=== PATIENT | female | born 2000 | race Caucasian/White ===

== ENCOUNTER 2021-01-05 19:13 | Inpatient (IN) ==
--- NOTE | 2021-01-05 20:12 | Emergency Department Note ---
History of Present Illness General Chief complaint: Mental Health Evaluation Stated complaint: SUICIDAL THOUGHTS Time Seen by Provider: 01/05/21 19:56 Source: patient History of Present Illness Provider complaint: Abi and suicidal ideation Onset (ago): day(s) Location: head Pain Consistency: + intermittent Quality: + other (Impulsive behavior, excessive spending, cannot sleep) Relieved By: + none Associated symptoms: no chest pain, no cough, no fever/chills, no headaches, no nausea/vomiting or no shortness of breath This is a 20-year-old female with a history of depression anxiety presenting for mental health evaluation. She states that she has felt "manic" for the past several days. She has also had suicidal ideation but no specific plan and no intent. She states that she has been acting impulsively. She slept with her boyfriend's best friend, spends a lot of money and does things that are out of character for her. She states that she is only been able to get 4 to 5 hours of sleep. She denies any drug or alcohol use. She is on Cymbalta for anxiety and depression but does not have a counselor or psychiatrist. She does not have a history of bipolar disorder but states that her relatives does and she thinks her mother does but she will not get checked. Patient denies any physical complaints and denies fever, cough or cold symptoms, chest pain, shortness of breath, abdominal pain, vomiting, diarrhea or urinary symptoms. She does state that she cut herself in the left thigh and forearm 2 days ago. She used to cut herself in the past but has not done so in a long time. She denied any suicidal intent with this cutting. Home Medications Medication Instructions Recorded Confirmed Type etonogestrel 68 mg subdermal 68 mg SUBDERMAL DIRECTED 12/16/18 01/09/20 History implant (Nexplanon) Saccharomyces boulardii 250 mg 250 mg PO BID #20 cap 09/01/20 Rx capsule (Florastor) amoxicillin 875 mg-potassium 1 tab PO BID #20 tab 09/01/20 Rx clavulanate 125 mg tablet (Augmentin) Allergies Allergy/AdvReac Type Severity Reaction Status Date / Time No Known Allergies Allergy Verified 01/09/20 03:57 Past Med/Surg History Medical History Anxiety Depression Family History Other No significant family history Social History Smoking Status: Never smoker marital status: Single Current Living Situation: Significant Other current occupational status: student Feels Safe at Home: Yes Review of Systems See HPI for pertinent positives & negatives. and A total of 10 systems reviewed and were otherwise negative Physical Exam Vital Signs Vital Signs - 24 hr 01/05/21 19:25 01/05/21 19:44 Temperature 36.6 C 37.1 C Temperature Source Temporal Artery Scan Oral Pulse Rate 112 H Pulse Rate [Right Finger] 108 H Pulse Rhythm [Right Finger] Regular Pulse Strength [Right Finger] Normal Respiratory Rate 18 18 Respiratory Effort / Characteristics Non-Labored Spontaneous Non-Labored Spontaneous Respiratory Depth Normal Normal Respiratory Pattern Regular Blood Pressure 145/94 H Blood Pressure [Right Arm] 154/82 H Blood Pressure Mean 111 Blood Pressure Mean [Right Arm] 106 Blood Pressure Position [Right Arm] Sitting Pulse Oximetry 99 98 Oxygen Delivery Method Room Air Room Air Sepsis Recent Fever Within 48 Hours No Sepsis New/Unexplained Change in Mental Status N/A Sepsis Action Taken by Nursing No Action Required Constitutional: Vital signs reviewed. Eyes: Pupils are equal round reactive to light. Conjunctiva are noninjected. ENT: Pharynx is clear without erythema or exudate. Mucous membranes are moist. Neck supple without meningeal signs. Respiratory: Clear to auscultation bilaterally. Breath sounds are equal bilaterally. Cardiovascular: Regular rate and rhythm. No rubs or gallops. GI: Soft, nondistended and nontender. Bowel sounds are present. Musculoskeletal: No peripheral edema. No lower extremity tenderness. Integumentary: No cyanosis. or jaundice. 3 very superficial transverse lacerations to the volar aspect of the left upper forearm without cellulitis or bleeding. Neurological: The patient is awake and alert. No focal deficits. Psychiatric: Normal affect. Not anxious appearing. Medical Decision Making Differential Diagnosis Mood disorder, thought disorder, acute abi, bipolar disorder, alcohol or drug abuse Medical Records Attestation: I reviewed the patient's medical records. I did perform a limited focused review of portions of the patient's old chart on the electronic medical record. The patient has had no recent pertinent visits to this hospital. Home Medications Current Medication List: was personally reviewed by me Laboratory Data Attestation: I reviewed the patient's lab results. Result diagrams: 01/05/21 20:20 01/05/21 20:20 Lab Results 01/05/21 01/05/21 01/05/21 Range/Units 20:15 20:15 20:15 WBC (4.8-10.8) K/uL RBC (4.2-5.4) M/uL Hgb (12.0-16.0) g/dL Hct (37-47) % MCV (80-100) fL MCH (25-34) pg MCHC (32-36) g/dL RDW Std Deviation (36.4-46.3) fL RDW Coeff of Claude (11.5-14.5) % Plt Count (130-400) K/uL MPV (7.4-10.4) fL Immature Gran % (Auto) % Neut % (Auto) % Lymph % (Auto) % [place] % (Auto) % Eos % (Auto) % Baso % (Auto) % Neut # (Auto) (1.4-6.5) K/uL Lymph # (Auto) (1.2-3.4) K/uL [place] # (Auto) (0.11-0.59) K/uL Eos # (Auto) (0-0.5) K/uL Baso # (Auto) (0-0.2) K/uL Immature Gran # (Auto) (0.00-0.02) K/uL Sodium (136-145) mmol/L Potassium (3.5-5.1) mmol/L Chloride (98-107) mmol/L Carbon Dioxide (21-32) mmol/L Anion Gap (3-11) BUN (7-18) mg/dl Creatinine (0.6-1.2) mg/dl Est Cr Clr Drug Dosing ml/min Est GFR ( Amer) ml/min Est GFR (Non-Af Amer) ml/min BUN/Creatinine Ratio (10-20) Glucose (70-99) mg/dl Calcium (8.5-10.1) mg/dl Total Bilirubin (0.2-1) mg/dl AST (15-37) U/L ALT (12-78) U/L Alkaline Phosphatase (45-117) U/L Total Protein (6.4-8.2) gm/dl Albumin (3.4-5.0) gm/dl Globulin (2.5-4.0) gm/dl Albumin/Globulin Ratio (0.9-2) TSH (0.300-4.500) uIu/ml Urine Color Yellow Urine Appearance Clear (Clear) Urine pH 5.5 (4.5-7.5) Ur Specific Logan 1.024 (1.000-1.030) Urine Protein Trace H (Negative) Urine Glucose (UA) Negative (Negative) Urine Ketones Trace H (Negative) Urine Blood 3+ H (Negative) Urine Nitrite Negative (Negative) Urine Bilirubin Negative (Negative) Urine Urobilinogen Negative (Negative) Ur Leukocyte Esterase Negative (Negative) Urine WBC (Auto) 1-5 (0-5) /hpf Urine RBC (Auto) 5-10 H (0-4) /hpf U Hyaline Cast (Auto) 1-5 (0-5) /lpf U Epithel Cells (Auto) 20-30 H (0-5) /lpf Urine Bacteria (Auto) Negative (Negative) Urine Crystals Calcium Oxalate A (None Prsent) Calcium Oxalate Crystal Present A (None Prsent) POC Ur Test NEG (NEG) Salicylates (2.8-20) mg/dl Urine Opiates Screen Neg (Neg) Ur Methadone, Qual Neg (Neg) Acetaminophen (10-30) ug/ml Urine Barbiturates Neg (Neg) Ur Phencyclidine (PCP) Neg (Neg) U Amphetamin/Meth Scrn Neg (Neg) MDMA (Ecstasy) Screen Neg (Neg) U Benzodiazepines Scrn Neg (Neg) Ur Cocaine Metabolite Neg (Neg) U Marijuana (THC) Screen Neg (Neg) Ethyl Alcohol mg/dL (0-3) mg/dl COVID-19 Eval Order 01/05/21 01/05/21 01/05/21 Range/Units 20:20 20:20 20:20 WBC 11.81 H (4.8-10.8) K/uL RBC 4.53 (4.2-5.4) M/uL Hgb 13.5 (12.0-16.0) g/dL Hct 40.9 (37-47) % MCV 90.3 (80-100) fL MCH 29.8 (25-34) pg MCHC 33.0 (32-36) g/dL RDW Std Deviation 43.7 (36.4-46.3) fL RDW Coeff of Claude 13.2 (11.5-14.5) % Plt Count 517 H (130-400) K/uL MPV 8.8 (7.4-10.4) fL Immature Gran % (Auto) 0.3 % Neut % (Auto) 63.2 % Lymph % (Auto) 29.8 % [place] % (Auto) 5.8 % Eos % (Auto) 0.5 % Baso % (Auto) 0.4 % Neut # (Auto) 7.47 H (1.4-6.5) K/uL Lymph # (Auto) 3.52 H (1.2-3.4) K/uL [place] # (Auto) 0.68 H (0.11-0.59) K/uL Eos # (Auto) 0.06 (0-0.5) K/uL Baso # (Auto) 0.05 (0-0.2) K/uL Immature Gran # (Auto) 0.03 H (0.00-0.02) K/uL Sodium 140 (136-145) mmol/L Potassium 3.9 (3.5-5.1) mmol/L Chloride 105 (98-107) mmol/L Carbon Dioxide 29 (21-32) mmol/L Anion Gap 5.0 (3-11) BUN 11 (7-18) mg/dl Creatinine 0.81 (0.6-1.2) mg/dl Est Cr Clr Drug Dosing 140.9 ml/min Est GFR ( Amer) 119.5 ml/min Est GFR (Non-Af Amer) 103.1 ml/min BUN/Creatinine Ratio 13.8 (10-20) Glucose 95 (70-99) mg/dl Calcium 9.1 (8.5-10.1) mg/dl Total Bilirubin 0.2 (0.2-1) mg/dl AST 24 (15-37) U/L ALT 48 (12-78) U/L Alkaline Phosphatase 84 (45-117) U/L Total Protein 8.1 (6.4-8.2) gm/dl Albumin 3.8 (3.4-5.0) gm/dl Globulin 4.3 H (2.5-4.0) gm/dl Albumin/Globulin Ratio 0.9 (0.9-2) TSH 2.200 (0.300-4.500) uIu/ml Urine Color Urine Appearance (Clear) Urine pH (4.5-7.5) Ur Specific Logan (1.000-1.030) Urine Protein (Negative) Urine Glucose (UA) (Negative) Urine Ketones (Negative) Urine Blood (Negative) Urine Nitrite (Negative) Urine Bilirubin (Negative) Urine Urobilinogen (Negative) Ur Leukocyte Esterase (Negative) Urine WBC (Auto) (0-5) /hpf Urine RBC (Auto) (0-4) /hpf U Hyaline Cast (Auto) (0-5) /lpf U Epithel Cells (Auto) (0-5) /lpf Urine Bacteria (Auto) (Negative) Urine Crystals (None Prsent) Calcium Oxalate Crystal (None Prsent) POC Ur Test (NEG) Salicylates < 1.7 L (2.8-20) mg/dl Urine Opiates Screen (Neg) Ur Methadone, Qual (Neg) Acetaminophen < 2 L (10-30) ug/ml Urine Barbiturates (Neg) Ur Phencyclidine (PCP) (Neg) U Amphetamin/Meth Scrn (Neg) MDMA (Ecstasy) Screen (Neg) U Benzodiazepines Scrn (Neg) Ur Cocaine Metabolite (Neg) U Marijuana (THC) Screen (Neg) Ethyl Alcohol mg/dL (0-3) mg/dl COVID-19 Eval Order 01/05/21 01/05/21 Range/Units 20:20 Unknown WBC (4.8-10.8) K/uL RBC (4.2-5.4) M/uL Hgb (12.0-16.0) g/dL Hct (37-47) % MCV (80-100) fL MCH (25-34) pg MCHC (32-36) g/dL RDW Std Deviation (36.4-46.3) fL RDW Coeff of Claude (11.5-14.5) % Plt Count (130-400) K/uL MPV (7.4-10.4) fL Immature Gran % (Auto) % Neut % (Auto) % Lymph % (Auto) % [place] % (Auto) % Eos % (Auto) % Baso % (Auto) % Neut # (Auto) (1.4-6.5) K/uL Lymph # (Auto) (1.2-3.4) K/uL [place] # (Auto) (0.11-0.59) K/uL Eos # (Auto) (0-0.5) K/uL Baso # (Auto) (0-0.2) K/uL Immature Gran # (Auto) (0.00-0.02) K/uL Sodium (136-145) mmol/L Potassium (3.5-5.1) mmol/L Chloride (98-107) mmol/L Carbon Dioxide (21-32) mmol/L Anion Gap (3-11) BUN (7-18) mg/dl Creatinine (0.6-1.2) mg/dl Est Cr Clr Drug Dosing ml/min Est GFR ( Amer) ml/min Est GFR (Non-Af Amer) ml/min BUN/Creatinine Ratio (10-20) Glucose (70-99) mg/dl Calcium (8.5-10.1) mg/dl Total Bilirubin (0.2-1) mg/dl AST (15-37) U/L ALT (12-78) U/L Alkaline Phosphatase (45-117) U/L Total Protein (6.4-8.2) gm/dl Albumin (3.4-5.0) gm/dl Globulin (2.5-4.0) gm/dl Albumin/Globulin Ratio (0.9-2) TSH (0.300-4.500) uIu/ml Urine Color Urine Appearance (Clear) Urine pH (4.5-7.5) Ur Specific Logan (1.000-1.030) Urine Protein (Negative) Urine Glucose (UA) (Negative) Urine Ketones (Negative) Urine Blood (Negative) Urine Nitrite (Negative) Urine Bilirubin (Negative) Urine Urobilinogen (Negative) Ur Leukocyte Esterase (Negative) Urine WBC (Auto) (0-5) /hpf Urine RBC (Auto) (0-4) /hpf U Hyaline Cast (Auto) (0-5) /lpf U Epithel Cells (Auto) (0-5) /lpf Urine Bacteria (Auto) (Negative) Urine Crystals (None Prsent) Calcium Oxalate Crystal (None Prsent) POC Ur Test (NEG) Salicylates (2.8-20) mg/dl Urine Opiates Screen (Neg) Ur Methadone, Qual (Neg) Acetaminophen (10-30) ug/ml Urine Barbiturates (Neg) Ur Phencyclidine (PCP) (Neg) U Amphetamin/Meth Scrn (Neg) MDMA (Ecstasy) Screen (Neg) U Benzodiazepines Scrn (Neg) Ur Cocaine Metabolite (Neg) U Marijuana (THC) Screen (Neg) Ethyl Alcohol mg/dL < 3.0 (0-3) mg/dl COVID-19 Eval Order Covid19 [facility]Now [facility] MDM Narrative I did evaluate the patient as noted above. The patient is presenting with suicidal ideation without a plan or any intent. She also states that she feels like she is having abi. She denies any prior history. He does have some very superficial lacerations to the leg and left forearm. I did order a urine analysis. She has calcium oxalate crystals but no signs of a UTI. She is not . I did order and review the patient's blood work as noted in the [facility] medical record. CBC is mildly elevated 11.8. She has no infectious symptoms. Hemoglobin is within normal limits. Platelets are 517. Electrolytes and LFTs are unremarkable. TSH is within normal limits. Toxicology screen is negative. I did have the mental health child welfare caseworker evaluate the patient. She evaluated her and recommended inpatient treatment. The patient was referred to [facility] I did discuss the test results with the patient. She was admitted to [facility] Impression & Plan Depression with suicidal ideation, Self-harming behavior Discharge Plan Visit Data Chief Complaint: Mental Health Evaluation Stated Complaint: SUICIDAL THOUGHTS ED Provider: Alvaro Page Discharge Problem: Depression with suicidal ideation, Self-harming behavior Patient Disposition: Transfer Behavioral Health Fac Forms Stand Alone Forms: My [facility], Suicide Prevention Resources Prescriptions Prescriptions: No Action Nexplanon 68 mg Implant 68 mg SUBDERMAL DIRECTED RF: 0 amoxicillin-pot clavulanate [Augmentin] 875-125 mg tablet 1 tab PO BID Qty: 20 RF: 0 Saccharomyces boulardii [Florastor] 250 mg capsule 250 mg PO BID Qty: 20 RF: 0 Referrals Referrals: [facility] [Primary Care Provider] -
[2021-01-05 20:30] LABS: Basophils # (auto) 0.05 K/uL (0-0.2); Basophils % (auto) 0.4 %; Eosinophils # (auto) 0.06 K/uL (0-0.5); Eosinophils % (auto) 0.5 %; Hematocrit (blood only) 40.9 % (37-47); Hemoglobin 13.5 g/dL (12.0-16.0); Immature Granulocytes # (auto) 0.03 K/uL (0.00-0.02); Immature Granulocytes % (auto) 0.3 %; Lymphocytes # (auto) 3.52 K/uL (1.2-3.4); Lymphocytes % (auto) 29.8 %; Mean Corpuscular Hemoglobin 29.8 pg (25-34); Mean Corpuscular Volume 90.3 fL (80-100); Mean Platelet Volume 8.8 fL (7.4-10.4); Monocytes # (auto) 0.68 K/uL (0.11-0.59); Monocytes % (auto) 5.8 %; Neutrophils # (auto) 7.47 K/uL (1.4-6.5); Neutrophils % (auto) 63.2 %; Platelet Count 517 K/uL (130-400); RDW Coefficient of Variation 13.2 % (11.5-14.5); RDW Standard Deviation 43.7 fL (36.4-46.3); Red Blood Count 4.53 M/uL (4.2-5.4); White Blood Count 11.81 K/uL (4.8-10.8)
[2021-01-05 20:52] LABS: Appearance Urine Clear (Clear); Bacteria Urine Automated Negative (Negative); Bilirubin Urine Negative (Negative); Blood Urine 3+ (Negative); Color Urine Yellow; Epithelial Cell Urine Auto 20-30 /lpf (0-5); Glucose Urine UA Negative (Negative); Ketones Urine Trace (Negative); Leukocyte Esterase Urine Negative (Negative); Nitrite Urine Negative (Negative); Protein Urine Trace (Negative); Specific Gravity Urine 1.024 (1.000-1.030); Urobilinogen Urine Negative (Negative); pH Urine 5.5 (4.5-7.5)
[2021-01-05 20:57] LABS: Albumin Level 3.8 gm/dl (3.4-5.0); BUN Creatinine Ratio 13.8 (10-20); Calcium 9.1 mg/dl (8.5-10.1); Creatinine Clr Calc Pharmacy 140.9 ml/min; Est GFR (African American) 119.5 ml/min; Est GFR (Non-African American) 103.1 ml/min; Potassium 3.9 mmol/L (3.5-5.1)
[2021-01-05 21:04] LABS: Calcium Oxalate Crystals Urine Present (None Prsent)
[2021-01-05 21:12] LABS: Albumin Globulin Ratio 0.9 (0.9-2); Bilirubin,Total 0.2 mg/dl (0.2-1); Globulin 4.3 gm/dl (2.5-4.0); Thyroid Stimulating Hormone 2.2 uIu/ml (0.300-4.500); Total Protein 8.1 gm/dl (6.4-8.2)
[2021-01-05 21:14] LABS: Acetaminophen < 2 ug/ml (10-30); Salicylate < 1.7 mg/dl (2.8-20)
[2021-01-05 21:21] LABS: Amphetamines+Metham, Urine Neg (Neg); Barbiturates, Urine Neg (Neg); Benzodiazepine, Urine Neg (Neg); Cocaine, Urine Neg (Neg); MDMA (Ecstacy), Urine Neg (Neg); Methadone, Urine Neg (Neg); Opiate, Urine Neg (Neg); Phencyclidine, Urine Neg (Neg)
[2021-01-06] MEDS ORDERED: LORazepam 1 MG TAB SL STA (01:10)
[2021-01-06 01:55] VITALS: O2SAT 96
[2021-01-06] MEDS ORDERED: MAGNESIUM HYDROXIDE SUSP 30 ML UDC PO PRN (02:30)
[2021-01-06] MEDS ORDERED: ALUMINUM/MAGNESIUM SUSP 30 ML UDC PO PRN (02:30)
[2021-01-06] MEDS ORDERED: SODIUM CHLORIDE 0.65% NA SOLN 45 ML (OCEAN) PRN (02:30)
[2021-01-06] MEDS ORDERED: BISMUTH SUBSALICYLATE LIQD 236 ML PO PRN (02:30)
[2021-01-06] MEDS ORDERED: hydrOXYzine HCl 25 MG TAB PO PRN ×2 (02:30)
[2021-01-06] MEDS ORDERED: QUEtiapine FUMARATE 25 MG TABLET PO ONE (02:32)
[2021-01-06] MEDS: ACETAMINOPHEN 325 MG TAB PO PRN (03:12)
--- NOTE | 2021-01-06 06:55 | Emergency Department Note ---
ED Visit Note Patient signed out to me at change of shift from Dr. Jennings. Patient with a history of depression and suicidal ideation. Patient with prior cuts to her forearm. Concern for manic episode. Patient is voluntary at this time and being evaluated by [facility] for possible admission. Eventually patient was accepted to [facility] 201 signed by me. .
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
[2021-01-06] MEDS ORDERED: DULoxetine HCL 30 MG CAP PO SCH (09:00)
[2021-01-06] MEDS ORDERED: DULoxetine HCL 20 MG CAP PO SCH (09:00)
[2021-01-06] MEDS: QUEtiapine FUMARATE 100 MG TABLET PO SCH (21:17)
--- NOTE | 2021-01-07 06:37 | Psychiatric Progress Note ---
Date of Service January 07, 2021 Impression / Recommendations Impression 20 yo female maintained on Cymbalta for non-specific anxiety and depression presents with mixed symptoms of SI and hypomania, no psychotic symptoms. 01/08/21--sleep improved, less irritable today (1) Bipolar disorder: 01/07/21: reviewed therapeutic dosing range for Seroquel for acute tarsha. She prefers lowest effective dose rathe than forced titration to 300 mg and w ould like to continue 100 mg again tonight. 01/06/21: The patient was admitted to the [facility] ([facility]) on q15 min checks (behavioral with suicide precautions) for safety. The patient will participate in group, recreational, and milieu therapies and will be offered additional individual and family sessions as clinically appropriate. Patient was offered 50 mg dose of Seroquel overnight for acute anxiety/insomnia driven by her mood condition. Lower dose of Cymbalta today to minimize discontinuation syndrome then d/c. Risks/benefits/alternatives were reviewed re: antipsychotics for mood and/or psychosis. Discussion included but was not limited to metabolic side effects, risks of TD and suicidal thoughts. There were no abnormal motor movements at baseline. Fasting glucose and lipid panel ordered for baseline monitoring. Risk Factors Assessment Do You Have Access To A Gun?: No Protective Factors Assessment Employed: Yes ([employer]) Interval History Identifying Information ANDREW BEE is a 20-year-old F, [employer] senior, has a history of depression and anxiety, and was admitted on 01/06/21 01:43 on a 201 voluntary commitment for reported tarsha. Chief Complaint "yeah it's still totally embarrassing to be here but I'll do whatever". Review of Systems Sleep Information Total Hours of Sleep: 7.75 Sleep Comments: admitted to unit at 0201 Meal Information Percent Meal Consumed - Breakfast: 0 Percent Meal Consumed - Lunch: 100 Percent Meal Consumed - Dinner: 100 Nutrition Comment: allowed to sleep Subjective Subjective Patient was seen & assessed and interval progress reviewed with nursing and social work. Patient largely cooperative overnight. Sleep is improved. Remains resistant to family meeting but agreed to involve a friend in her stay for support. Doesn't want to address issue with boyfriend as "it's in his court now". States that she wants to get back to class as soon as possible. Feels a "little foggy today" but doesn't attribute it to the medication. States that no suicidal thoughts yesterday but generally triggered by guilt and "I'm all kinds of guilty". Physical Exam Psychiatric Orientation: alert and oriented x 3 Apperance: appropriately dressed and appropriately groomed Eye Contact: good eye contact Motor Behavior: no abnormal motor movements Speech: normal rate/rhythm/volume of speech Affect: + labile affect Mood: + depressed mood and + irritable mood Thought Process: linear/logical thought process Thought Content: reality based without delusions Suicidal Thoughts: denies suicidal thoughts, denies suicidal plan and denies suicidal intent Homicidal Thoughts: denies homicidal thoughts Hallucinations: no auditory hallucinations and no visual hallucinations Cognition: attention grossly intact and language grossly intact Estimated Intelligence: consistent with education level Insight: + limited insight Judgement: + limited judgement Vital Signs (Past 24 Hours) Last Vital Signs Temp 35.9 C L 01/06/21 20:38 Pulse 81 01/06/21 02:35 Resp 18 01/06/21 02:35 BP 148/94 H 01/06/21 02:35 Pulse Ox 96 01/06/21 02:35 Results & Data ([facility]) Current Inpatient Medications Current Inpatient Medications: Current Inpatient Medications Acetaminophen (Acetaminophen 325 Mg Tab) 650 mg PO Q4H PRN PRN Reason: Headache or Minor Fever Stop: 02/05/21 02:29 Last Admin: 01/06/21 03:12 Dose: 650 mg Documented by: Al Hydrox/Mg Hydrox/Simethicone (Aluminum/Magnesium Susp 30 Ml Udc) 30 ml PO Q4H PRN PRN Reason: GI Upset Stop: 02/05/21 02:29 Bismuth Subsalicylate (Bismuth Subsalicylate Liqd 236 Ml) 15 ml PO PRN PRN PRN Reason: Loose Stool Stop: 02/05/21 02:29 Hydroxyzine HCl (Hydroxyzine Hcl 25 Mg Tab) 50 mg PO HSZ PRN PRN Reason: Insomnia Stop: 02/05/21 02:29 Hydroxyzine HCl (Hydroxyzine Hcl 25 Mg Tab) 25 mg PO Q4H PRN PRN Reason: Anxiety Stop: 02/05/21 02:29 Magnesium Hydroxide (Magnesium Hydroxide Susp 30 Ml Udc) 30 ml PO DAILY PRN PRN Reason: Constipation Stop: 02/05/21 02:29 Quetiapine Fumarate (Quetiapine Fumarate 100 Mg Tablet) 100 mg PO HS JESSI Stop: 02/05/21 21:59 Last Admin: 01/06/21 21:17 Dose: 100 mg Documented by: Sodium Chloride (Sodium Chloride 0.65% Na Soln 45 Ml ([place])) 1 - 2 sprays NA PRN PRN PRN Reason: Nasal Dryness/Congestion Stop: 02/05/21 02:29 Mental Health & Subst Abuse Tx Therapist Name of Therapist: None Autographer Name of Autographer: None Post Discharge Appointments Primary Care Physician Name Of Family Doctor: Abimael Borjas
[2021-01-07 08:57] LABS: Glucose Fasting 85 mg/dl (70-99)
[2021-01-07 09:04] LABS: Chol HDL Ratio 4; Cholesterol 172 mg/dl (0-200); HDL Cholesterol 40 mg/dl; LDL Cholesterol Calculated 111 mg/dl; Triglycerides 107 mg/dl (0-150); VLDL Cholesterol 21 mg/dl
[2021-01-07] MEDS: QUEtiapine FUMARATE 100 MG TABLET PO SCH (22:15)
--- NOTE | 2021-01-08 15:46 | Psychiatric Progress Note ---
Date of Service January 08, 2021 Impression / Recommendations Impression 20 yo female maintained on Cymbalta for non-specific anxiety and depression presents with mixed symptoms of SI and hypomania, no psychotic symptoms. 01/08/21--sleep improved, less irritable today (1) Bipolar disorder: 01/08/2021eroquel increased to 200 mg p.o. nightly. 01/07/21: reviewed therapeutic dosing range for Seroquel for acute tarsha. She prefers lowest effective dose rathe than forced titration to 300 mg and would like to continue 100 mg again tonight. 01/06/21: The patient was admitted to the [facility] ([facility] unit) on q15 min checks (behavioral with suicide precautions) for safety. The patient will participate in group, recreational, and milieu therapies and will be offered additional individual and family sessions as clinically appropriate. Patient was offered 50 mg dose of Seroquel overnight for acute anxiety/insomnia driven by her mood condition. Lower dose of Cymbalta today to minimize discontinuation syndrome then d/c. Risks/benefits/alternatives were reviewed re: antipsychotics for mood and/or psychosis. Discussion included but was not limited to metabolic side effects, risks of TD and suicidal thoughts. There were no abnormal motor movements at baseline. Fasting glucose and lipid panel ordered for baseline monitoring. Risk Factors Assessment Do You Have Access To A Gun?: No Protective Factors Assessment Employed: Yes ([employer]) Interval History Identifying Information ANDREW BEE is a 20-year-old F, [employer] senior, has a history of depression and anxiety, and was admitted on 01/06/21 01:43 on a 201 voluntary commitment for reported tarsha. Chief Complaint "I'm glad I'm here, I know I needed to be.". Review of Systems Sleep Information Total Hours of Sleep: 7.5 Sleep Comments: admitted to unit at 0201 Meal Information Percent Meal Consumed - Breakfast: 100 Percent Meal Consumed - Lunch: 100 Percent Meal Consumed - Dinner: 100 Nutrition Comment: allowed to sleep Subjective Subjective Patient seen, chart reviewed and case discussed with treatment team, nursing and social work. Patient reports a good night of sleep and strong appetite. No side effects reported or observed. Regarding mood, patient reports some improvement which they attribute to the medications as well as the therapy they have received on the unit. Patient is agreeable to increase her dose of Seroquel to a target of approximately 500 mg. She was informed that the dose will be increased 100 mg tonight for a total of 200 mg p.o. nightly. Patient expressed understanding and agreement. I spent 30 minutes with the patient, 50% of which was dedicated to counselling and coordination of care. Physical Exam Psychiatric Orientation: alert and oriented x 3 Apperance: appropriately dressed and appropriately groomed Eye Contact: good eye contact Motor Behavior: no abnormal motor movements Speech: normal rate/rhythm/volume of speech Affect: + labile affect Mood: + depressed mood and + irritable mood Thought Process: linear/logical thought process and + circumstantial thought process Thought Content: reality based without delusions Suicidal Thoughts: denies suicidal thoughts, denies suicidal plan and denies suicidal intent Homicidal Thoughts: denies homicidal thoughts Hallucinations: no auditory hallucinations and no visual hallucinations Cognition: attention grossly intact and language grossly intact Estimated Intelligence: consistent with education level Insight: + limited insight Judgement: + limited judgement Vital Signs (Past 24 Hours) Last Vital Signs Temp 36.6 C 01/08/21 06:52 Pulse 101 H 01/08/21 06:52 Resp 14 01/08/21 06:52 BP 109/72 01/08/21 06:52 Pulse Ox 96 01/06/21 02:35 Results & Data ([facility]) Current Inpatient Medications Current Inpatient Medications: Current Inpatient Medications Acetaminophen (Acetaminophen 325 Mg Tab) 650 mg PO Q4H PRN PRN Reason: Headache or Minor Fever Stop: 02/05/21 02:29 Last Admin: 01/06/21 03:12 Dose: 650 mg Documented by: Al Hydrox/Mg Hydrox/Simethicone (Aluminum/Magnesium Susp 30 Ml Udc) 30 ml PO Q4H PRN PRN Reason: GI Upset Stop: 02/05/21 02:29 Bismuth Subsalicylate (Bismuth Subsalicylate Liqd 236 Ml) 15 ml PO PRN PRN PRN Reason: Loose Stool Stop: 02/05/21 02:29 Hydroxyzine HCl (Hydroxyzine Hcl 25 Mg Tab) 50 mg PO HSZ PRN PRN Reason: Insomnia Stop: 02/05/21 02:29 Hydroxyzine HCl (Hydroxyzine Hcl 25 Mg Tab) 25 mg PO Q4H PRN PRN Reason: Anxiety Stop: 02/05/21 02:29 Magnesium Hydroxide (Magnesium Hydroxide Susp 30 Ml Udc) 30 ml PO DAILY PRN PRN Reason: Constipation Stop: 02/05/21 02:29 Quetiapine Fumarate (Quetiapine Fumarate 200 Mg Tab) 200 mg PO HS JESSI Stop: 02/07/21 21:59 Sodium Chloride (Sodium Chloride 0.65% Na Soln 45 Ml ([place])) 1 - 2 sprays NA PRN PRN PRN Reason: Nasal Dryness/Congestion Stop: 02/05/21 02:29 Mental Health & Subst Abuse Tx Therapist Name of Therapist: None Game Show Host Name of Game Show Host: Student [employer] Advocacy Phone Number for Game Show Host: [phone] Post Discharge Appointments Primary Care Physician Name Of Family Doctor: Abimael [facility] - Dr. Mendez Primary Care Provider Appointment Comment: [id number] [place] [address] Contact Information Discharge Discharge [address] [address] [place], [place] [address] [place] [address] Contact Information Comment: Permanent Home
[2021-01-08] MEDS: ACETAMINOPHEN 325 MG TAB PO PRN ×2 (17:50→21:54)
[2021-01-08] MEDS ORDERED: QUEtiapine FUMARATE 200 MG TAB PO SCH (22:00)
[2021-01-09] MEDS: ACETAMINOPHEN 325 MG TAB PO PRN (14:55)
--- NOTE | 2021-01-09 15:09 | Psychiatric Progress Note ---
Date of Service January 09, 2021 Impression / Recommendations Impression 20 yo female maintained on Cymbalta for non-specific anxiety and depression presents with mixed symptoms of SI and hypomania, no psychotic symptoms. 01/08/21--sleep improved, less irritable today (1) Bipolar disorder: 01/09/2021eroquel will be increased to 300 mg p.o. nightly. Patient making incremental progress. 01/08/2021eroquel increased to 200 mg p.o. nightly. 01/07/21: reviewed therapeutic dosing range for Seroquel for acute tarsha. She prefers lowest effective dose rathe than forced titration to 300 mg and would like to continue 100 mg again tonight. 01/06/21: The patient was admitted to the [facility] ([facility] mental health unit) on q15 min checks (behavioral with suicide precautions) for safety. The patient will participate in group, recreational, and milieu therapies and will be offered additional individual and family sessions as clinically appropriate. Patient was offered 50 mg dose of Seroquel overnight for acute anxiety/insomnia driven by her mood condition. Lower dose of Cymbalta today to minimize discontinuation syndrome then d/c. Risks/benefits/alternatives were reviewed re: antipsychotics for mood and/or psychosis. Discussion included but was not limited to metabolic side effects, risks of TD and suicidal thoughts. There were no abnormal motor movements at baseline. Fasting glucose and lipid panel ordered for baseline monitoring. Risk Factors Assessment Do You Have Access To A Gun?: No Protective Factors Assessment Employed: Yes ([employer]) Interval History Identifying Information ANDREW BEE is a 20-year-old F, [employer] senior, has a history of depression and anxiety, and was admitted on 01/06/21 01:43 on a 201 voluntary commitment for reported tarsha. Chief Complaint "My uterus hurts". Review of Systems Sleep Information Total Hours of Sleep: 7 Sleep Comments: admitted to unit at 0201 Meal Information Percent Meal Consumed - Breakfast: 100 Percent Meal Consumed - Lunch: 100 Percent Meal Consumed - Dinner: 100 Nutrition Comment: allowed to sleep Subjective Subjective Patient seen, chart reviewed and case discussed with treatment team, nursing and social work. Patient reports a good night of sleep and strong appetite. No side effects reported or observed. She is agreeable to increase dosage of Seroquel to 300 mg tonight. Regarding mood, patient reports some improvement which they attribute to the medications as well as the therapy they have received on the unit. She is complaining of some pain in her vaginal area, a ultrasound And MOBILITY DEVELOPER consult was ordered I spent 30 minutes with the patient, 50% of which was dedicated to counselling and coordination of care. Physical Exam Psychiatric Orientation: alert and oriented x 3 Apperance: appropriately dressed and appropriately groomed Eye Contact: good eye contact Motor Behavior: no abnormal motor movements Speech: normal rate/rhythm/volume of speech Affect: + labile affect Mood: + depressed mood and + irritable mood Thought Process: linear/logical thought process and + circumstantial thought process Thought Content: reality based without delusions Suicidal Thoughts: denies suicidal thoughts, denies suicidal plan and denies suicidal intent Homicidal Thoughts: denies homicidal thoughts Hallucinations: no auditory hallucinations and no visual hallucinations Cognition: attention grossly intact and language grossly intact Estimated Intelligence: consistent with education level Insight: + limited insight Judgement: + limited judgement Vital Signs (Past 24 Hours) Last Vital Signs Temp 36.9 C 01/09/21 06:49 Pulse 112 H 01/09/21 06:49 Resp 14 01/09/21 06:49 BP 116/77 01/09/21 06:49 Pulse Ox 96 01/06/21 02:35 Results & Data ([facility]) Current Inpatient Medications Current Inpatient Medications: Current Inpatient Medications Acetaminophen (Acetaminophen 325 Mg Tab) 650 mg PO Q4H PRN PRN Reason: Headache or Minor Fever Stop: 02/05/21 02:29 Last Admin: 01/09/21 14:55 Dose: 650 mg Documented by: Al Hydrox/Mg Hydrox/Simethicone (Aluminum/Magnesium Susp 30 Ml Udc) 30 ml PO Q4H PRN PRN Reason: GI Upset Stop: 02/05/21 02:29 Bismuth Subsalicylate (Bismuth Subsalicylate Liqd 236 Ml) 15 ml PO PRN PRN PRN Reason: Loose Stool Stop: 02/05/21 02:29 Hydroxyzine HCl (Hydroxyzine Hcl 25 Mg Tab) 50 mg PO HSZ PRN PRN Reason: Insomnia Stop: 02/05/21 02:29 Hydroxyzine HCl (Hydroxyzine Hcl 25 Mg Tab) 25 mg PO Q4H PRN PRN Reason: Anxiety Stop: 02/05/21 02:29 Magnesium Hydroxide (Magnesium Hydroxide Susp 30 Ml Udc) 30 ml PO DAILY PRN PRN Reason: Constipation Stop: 02/05/21 02:29 Quetiapine Fumarate (Quetiapine Fumarate 200 Mg Tab) 200 mg PO HS JESSI Stop: 02/07/21 21:59 Last Admin: 01/08/21 21:54 Dose: 200 mg Documented by: Sodium Chloride (Sodium Chloride 0.65% Na Soln 45 Ml ([place])) 1 - 2 sprays NA PRN PRN PRN Reason: Nasal Dryness/Congestion Stop: 02/05/21 02:29 Mental Health & Subst Abuse Tx Psychiatrist Name of Psychiatrist: Nikkie Kennedy Psychiatrist's Psychiatric Appointment Comment: Will schedule after intake Therapist Name of Therapist: Nikkie Rivera Therapist's Date of Therapist Appointment: 01/23/21 Time of Therapist Appointment: 10:00 a.m. [facility] [address] [facility] Name [facility] Wire Bender Hand: [facility] Phone Number for Wire Bender Hand: [phone] Date of Appointment with Wire Bender Hand: 01/12/21 Time of Appointment with Wire Bender Hand: 1:00 p.m. Case Management Appointment Comment: [email or web address] Post Discharge Appointments Primary Care Physician Name Of Family Doctor: [facility] - Dr. Mendez Primary Care Provider Appointment Comment: [address] [place] [id number] Contact Information Discharge Discharge Address: [facility] [address], [place] [address] Contact Information Comment: .
--- NOTE | 2021-01-09 15:31 | Ultrasound Report ---
PELVIC ULTRASOUND CLINICAL HISTORY: pain from IUD COMPARISON STUDY: None. TECHNIQUE: Transabdominal and transvaginal sonography of the pelvis was performed. FINDINGS: Uterus measures 7.4 x 3.2 x 4.1 cm. Endometrium measures 4 mm in thickness. Intrauterine de vice is noted. Device appears low lying with tip within the body of the endometrial cavity. Ovaries a re normal. There is color flow within each ovary. The right ovary measures 2.4 x 1.7 x 2.1 cm and the left ovary measures 3.5 x 2.2 x 2 cm. There is no adnexal mass. No free fluid. IMPRESSION: 1. Low positioning of the intrauterine device with tip within the body of the endometrial cavity. 2. Otherwise, unremarkable pelvic ultrasound. ACT 112: Negative or not required by law. Electronically signed by: Wallace Post M.D. 01/09/2021 3:30 PM
[2021-01-09] MEDS ORDERED: IBUPROFEN 600 MG TAB PO PRN (16:50)
--- NOTE | 2021-01-09 16:52 | OB/GYN Consultation ---
Date of Consultation January 09, 2021 Assessment & Plan (1) Malpositioned IUD: Patient was counseled on the malpositioned IUD as seen on US above. She felt this was consistent with her belief it had been pulled down during recent sexual activity, and with the pain she was experiencing. We discussed that IUD removal was recommended to relieve this pain, and with her consent, this was done. She was counseled that she is NOT currently protected from , and any sexual activity should include use of a barrier such as a condom. She was offered STD testing which she accepted, including vaginal swab (collected) and serum testing (will order). She is aware that she can contact our office for placement of a new Paragard on an outpatient basis any time after she is able to attend an outpatient appointment following her discharge from hospital. History of Present Illness Reason for Consultation: Pelvic pain, "I feel like my IUD is too low, it's hurting." Attending Physician: Alexandrea Curtis MD History of Present Illness 20yo G0 female, admitted to [facility] by self-choice for manic episode. She complain ed to her physician today that she has pulling type pain in her uterus and thinks her IUD is malpositioned, hence LIVESTOCK FARMER consult. She was seen in the treatment room with Veronica Brown serving as helpdesk administrator. Patient relates that she was having sexual relations with a new partner, "cheating," and not behaving in a way that she typically would, due to her manic episode. This occurred last Friday. During that encounter she felt the partner's fingers catch on the IUD strings and pull it, and pain began immediately. The pain has persisted, not worse but not better; it become difficult to ignore as her mental status improved, and she now finds it so bothersome that she is hesitant to walk or be normally active. She is also concerned for STD exposure as she thinks the partner used a condom but cannot be sure, as she is aware that her ability to make decisions and her situational awareness were compromised at that time. She is heterosexual and typically monogamous with one male partner other than this recent episode, and has not been tested for STD's recently. Of note, the ER admission document for this visit states her control method is Nexplanon. The patient states that she stopped using nexplanon about two years ago, then tried POPs, then switched to a nonhormonal copper IUD about a year ago, having it placed at [facility]. She is not an estrogen candidate due to migraines with aura, and felt that progestins were causing exacerbation of her depression. Her father was , hence her receiving care at that facility; the patient states she personally is non , and lives here as she is a [employer] student. She is hoping to have the IUD removed to stop the pain, and is aware that she will need to use condoms with 100% compliance until a new IUD can be placed on an outpatient basis. She was reminded if there is condom breakage or concern for possible non-use, Plan B is available OTC to ensure does not occur, but will not prevent STDs. Allergies Allergy/AdvReac Type Severity Reaction Status Date / Time No Known Allergies Allergy Verified 01/09/20 03:57 Home Medications Medication Instructions Recorded Confirmed Type duloxetine 20 mg capsule,delayed 40 mg PO DAILY 01/08/21 01/08/21 History release Patient History Medical History Anxiety Depression Family History Other No significant family history Social History Smoking Status: Never smoker Preferred Language: Qatari Communication Ability: Effective Exterior Work Helper Required: No Beliefs That Will Affect Care: Congregational (Amish, follows kosher diet) Congregational Beliefs: Kosher diet marital status: Single Current Living Situation: Significant Other current occupational status: student Feels Safe at Home: Yes Assistive Devices: Glasses Physical Exam Constitutional: WD/WN, vitals as above Eyes: PERRL, conjunctivae normal, anicteric sclerae ENMT: Ears: no hearing impairment and no external ear abnormality Nose: no external nose abnormality Mouth: no lip abnormality Neck: trachea midline, no thyromegaly normal visual inspection Respiratory: normal respiratory effort and able to speak in complete sentences; no respiratory distress and no labored breathing Cardiovascular: Rate/Rhythm: regular rate and regular rhythm Extremities: no edema Chest (Breasts): Additional Comments: clothed observation, appears normal age-appropriate breast development Musculoskeletal: Head/Neck/Chest: normocephalic and head atraumatic Extremities: extremities normal to inspection Gait: normal gait Skin: no rashes, warm and dry Neurologic: PERRL, EOMI, accommodation nl, no face palsy, no dysarthria awake Motor/Sensory: normal movement Genitourinary: Speculum exam performed with Niru Brown as helpdesk administrator, and with patient consent. External genitalia normal with evidence of hair removal. No skin lesions, normal labia/BUS/introitus. Lighted plastic speculum used; vagina without abnormal discharge, no bleeding, cervix nulliparous and unremarkable, and white strings seen protruding a tiny way from the cervix then folding back on themselves and going up into the uterus. A GC/CT swab was collected. Procedure: The protruding strings of the IUD were grasped with a sterile placental forcep and gently pulled, which immediately produced a Paragard IUD from the uterus. The IUD appeared intact, though its arms were at an angle suggesting malposition of several days' duration. It was discarded. There was no bleeding from the cervix and no significant pain or difficulty with removal. The procedure having been completed without complication, speculum was removed and patient was seated upright. Results & Data ([facility]) Vital Signs (Past 12 Hours) Vital Signs Temp Pulse Resp BP 01/09/21 06:49 98.4 F 112 H 14 116/77 Diagnostic Findings Laboratory Results WBC 11.81 K/uL (4.8-10.8) H 01/05/21 20:20 RBC 4.53 M/uL (4.2-5.4) 01/05/21 20:20 Hgb 13.5 g/dL (12.0-16.0) 01/05/21 20:20 Hct 40.9 % (37-47) 01/05/21 20:20 MCV 90.3 fL (80-100) 01/05/21 20:20 MCH 29.8 pg (25-34) 01/05/21 20:20 MCHC 33.0 g/dL (32-36) 01/05/21 20:20 RDW Std Deviation 43.7 fL (36.4-46.3) 01/05/21 20:20 RDW Coeff of Claude 13.2 % (11.5-14.5) 01/05/21 20:20 Plt Count 517 K/uL (130-400) H 01/05/21 20:20 MPV 8.8 fL (7.4-10.4) 01/05/21 20:20 Immature Gran % (Auto) 0.3 % 01/05/21 20:20 Neut % (Auto) 63.2 % 01/05/21 20:20 Lymph % (Auto) 29.8 % 01/05/21 20:20 Sargent % (Auto) 5.8 % 01/05/21 20:20 Eos % (Auto) 0.5 % 01/05/21 20:20 Baso % (Auto) 0.4 % 01/05/21 20:20 Neut # (Auto) 7.47 K/uL (1.4-6.5) H 01/05/21 20:20 Lymph # (Auto) 3.52 K/uL (1.2-3.4) H 01/05/21 20:20 Sargent # (Auto) 0.68 K/uL (0.11-0.59) H 01/05/21 20:20 Eos # (Auto) 0.06 K/uL (0-0.5) 01/05/21 20:20 Baso # (Auto) 0.05 K/uL (0-0.2) 01/05/21 20:20 Immature Gran # (Auto) 0.03 K/uL (0.00-0.02) H 01/05/21 20:20 Sodium 140 mmol/L (136-145) 01/05/21 20:20 Potassium 3.9 mmol/L (3.5-5.1) 01/05/21 20:20 Chloride 105 mmol/L (98-107) 01/05/21 20:20 Carbon Dioxide 29 mmol/L (21-32) 01/05/21 20:20 Anion Gap 5.0 (3-11) 01/05/21 20:20 BUN 11 mg/dl (7-18) 01/05/21 20:20 Creatinine 0.81 mg/dl (0.6-1.2) 01/05/21 20:20 Est Cr Clr Drug Dosing 140.9 ml/min 01/05/21 20:20 Est GFR ( Amer) 119.5 ml/min 01/05/21 20:20 Est GFR (Non-Af Amer) 103.1 ml/min 01/05/21 20:20 BUN/Creatinine Ratio 13.8 (10-20) 01/05/21 20:20 Glucose 95 mg/dl (70-99) 01/05/21 20:20 Fasting Glucose 85 mg/dl (70-99) 01/07/21 08:05 Calcium 9.1 mg/dl (8.5-10.1) 01/05/21 20:20 Total Bilirubin 0.2 mg/dl (0.2-1) 01/05/21 20:20 AST 24 U/L (15-37) 01/05/21 20:20 ALT 48 U/L (12-78) 01/05/21 20:20 Alkaline Phosphatase 84 U/L (45-117) 01/05/21 20:20 Total Protein 8.1 gm/dl (6.4-8.2) 01/05/21 20:20 Albumin 3.8 gm/dl (3.4-5.0) 01/05/21 20:20 Globulin 4.3 gm/dl (2.5-4.0) H 01/05/21 20:20 Albumin/Globulin Ratio 0.9 (0.9-2) 01/05/21 20:20 Triglycerides 107 mg/dl (0-150) 01/07/21 08:05 Cholesterol 172 mg/dl (0-200) 01/07/21 08:05 LDL Cholesterol, Calc 111 mg/dl 01/07/21 08:05 VLDL Cholesterol, Calc 21 mg/dl 01/07/21 08:05 HDL Cholesterol 40 mg/dl 01/07/21 08:05 Cholesterol/HDL Ratio 4 01/07/21 08:05 TSH 2.200 uIu/ml (0.300-4.500) 01/05/21 20:20 Urine Color Yellow 01/05/21 20:15 Urine Appearance Clear (Clear) 01/05/21 20:15 Urine pH 5.5 (4.5-7.5) 01/05/21 20:15 Ur Specific [place] 1.024 (1.000-1.030) 01/05/21 20:15 Urine Protein Trace (Negative) H 01/05/21 20:15 Urine Glucose (UA) Negative (Negative) 01/05/21 20:15 Urine Ketones Trace (Negative) H 01/05/21 20:15 Urine Blood 3+ (Negative) H 01/05/21 20:15 Urine Nitrite Negative (Negative) 01/05/21 20:15 Urine Bilirubin Negative (Negative) 01/05/21 20:15 Urine Urobilinogen Negative (Negative) 01/05/21 20:15 Ur Leukocyte Esterase Negative (Negative) 01/05/21 20:15 Urine WBC (Auto) 1-5 /hpf (0-5) 01/05/21 20:15 Urine RBC (Auto) 5-10 /hpf (0-4) H 01/05/21 20:15 U Hyaline Cast (Auto) 1-5 /lpf (0-5) 01/05/21 20:15 U Epithel Cells (Auto) 20-30 /lpf (0-5) H 01/05/21 20:15 Urine Bacteria (Auto) Negative (Negative) 01/05/21 20:15 Urine Crystals Calcium Oxalate (None Prsent) A 01/05/21 20:15 Calcium Oxalate Crystal Present (None Prsent) A 01/05/21 20:15 POC Ur Test NEG (NEG) 01/05/21 20:15 Salicylates < 1.7 mg/dl (2.8-20) L 01/05/21 20:20 Urine Opiates Screen Neg (Neg) 01/05/21 20:15 Ur Methadone, Qual Neg (Neg) 01/05/21 20:15 Acetaminophen < 2 ug/ml (10-30) L 01/05/21 20:20 Urine Barbiturates Neg (Neg) 01/05/21 20:15 Ur Phencyclidine (PCP) Neg (Neg) 01/05/21 20:15 U Amphetamin/Meth Scrn Neg (Neg) 01/05/21 20:15 MDMA (Ecstasy) Screen Neg (Neg) 01/05/21 20:15 U Benzodiazepines Scrn Neg (Neg) 01/05/21 20:15 Ur Cocaine Metabolite Neg (Neg) 01/05/21 20:15 U Marijuana (THC) Screen Neg (Neg) 01/05/21 20:15 Ethyl Alcohol mg/dL < 3.0 mg/dl (0-3) 01/05/21 20:20 [facility]/21 Unknown SARS-CoV-2, RNA, NAAT NEGATIVE (NEGATIVE) 01/05/21 Unknown Impressions Pelvis Ultrasound 01/09/21 14:30 PELVIC ULTRASOUND CLINICAL HISTORY: pain from IUD COMPARISON STUDY: None. TECHNIQUE: Transabdominal and transvaginal sonography of the pelvis was performed. FINDINGS: Uterus measures 7.4 x 3.2 x 4.1 cm. Endometrium measures 4 mm in thickness. Intrauterine device is noted. Device appears low lying with tip within the body of the endometrial cavity. Ovaries are normal. There is color flow within each ovary. The right ovary measures 2.4 x 1.7 x 2.1 cm and the left ovary measures 3.5 x 2.2 x 2 cm. There is no adnexal mass. No free fluid. IMPRESSION: 1. Low positioning of the intrauterine device with tip within the body of the endometrial cavity. 2. Otherwise, unremarkable pelvic ultrasound. ACT 112: Negative or not required by law. Electronically signed by: Wallace Post M.D. 01/09/2021 3:30 PM PG Care Time/CCT Total # of Minutes Spent Total Time Spent with Patient: Total time spent is greater than 50% in coordination of care (as documented) at patient's floor/unit and/or counseling patient: Coding Level of Care Code 54395 Office/OBS Consult Lvl 4 Diagnoses Malpositioned IUD T83.32XA CPT Codes IUD Removal - 93037 ([id number])
[2021-01-09 18:40] LABS: Hepatitis B Surf Ag Rflx Conf Neg (Neg)
[2021-01-09 19:08] LABS: Hepatitis C IgG 13Yrs+Old_Rflx Neg (Neg)
[2021-01-09] MEDS: QUEtiapine FUMARATE 300 MG TABLET PO SCH (22:04)
--- NOTE | 2021-01-10 15:26 | Psychiatric Progress Note ---
Date of Service January 10, 2021 Impression / Recommendations Impression 20 yo female who presented with SI and hypomania, no psychotic symptoms. Has been well managed on 300 mg of Seroquel. (1) Bipolar disorder: 01/10/2021eroquel remain at 300 mg p.o. nightly. Patient making good progress, will start discharge planning 01/09/2021eroquel will be increased to 300 mg p.o. nightly. Patient making incremental progress. 01/08/2021eroquel increased to 200 mg p.o. nightly. 01/07/21: reviewed therapeutic dosing range for Seroquel for acute tarsha. She prefers lowest effective dose rathe than forced titration to 300 mg and would li ke to continue 100 mg again tonight. 01/06/21: The patient was admitted to the [facility] ([facility] unit) on q15 min checks (behavioral with suicide precautions) for safety. The patient will participate in group, recreational, and milieu therapies and will be offered additional individual and family sessions as clinically appropriate. Patient was offered 50 mg dose of Seroquel overnight for acute anxiety/insomnia driven by her mood condition. Lower dose of Cymbalta today to minimize discontinuation syndrome then d/c. Risks/benefits/alternatives were reviewed re: antipsychotics for mood and/or psychosis. Discussion included but was not limited to metabolic side effects, risks of TD and suicidal thoughts. There were no abnormal motor movements at baseline. Fasting glucose and lipid panel ordered for baseline monitoring. Risk Factors Assessment Do You Have Access To A Gun?: No Protective Factors Assessment Employed: Yes ([employer]) Interval History Identifying Information ANDREW BEE is a 20-year-old F, [employer] senior, has a history of depression and anxiety, and was admitted on 01/06/21 01:43 on a 201 voluntary commitment for reported tarsha. Chief Complaint "I am feeling better". Review of Systems Sleep Information Total Hours of Sleep: 6.5 Sleep Comments: admitted to unit at 0201 Meal Information Percent Meal Consumed - Breakfast: 100 Percent Meal Consumed - Lunch: 100 Percent Meal Consumed - Dinner: 100 Nutrition Comment: allowed to sleep Subjective Subjective Patient seen, chart reviewed and case discussed with treatment team, nursing and social work. Patient reports a good night of sleep and strong appetite. No side effects reported or observed. Regarding mood, patient reports some improvement which they attribute to the medications as well as the therapy they have received on the unit. Patient reports much more stability to her mood. She is no longer hyperverbal or pressured. She reports her thoughts feeling more organized. Patient had her IUD removed. She will be provided with aftercare [employer] appointment upon discharge. She is reporting some pain, but overall improved from her condition previously. I spent 30 minutes with the patient, 50% of which was dedicated to counselling and coordination of care. Physical Exam Psychiatric Orientation: alert and oriented x 3 Apperance: appropriately dressed and appropriately groomed Eye Contact: good eye contact Motor Behavior: no abnormal motor movements Speech: normal rate/rhythm/volume of speech Affect: + labile affect Mood: + depressed mood and + irritable mood Thought Process: linear/logical thought process and + circumstantial thought process Thought Content: reality based without delusions Suicidal Thoughts: denies suicidal thoughts, denies suicidal plan and denies suicidal intent Homicidal Thoughts: denies homicidal thoughts Hallucinations: no auditory hallucinations and no visual hallucinations Cognition: attention grossly intact and language grossly intact Estimated Intelligence: consistent with education level Insight: + limited insight Judgement: + limited judgement Vital Signs (Past 24 Hours) Last Vital Signs Temp 36.7 C 01/10/21 06:47 Pulse 106 H 01/10/21 06:48 Resp 16 01/10/21 06:47 BP 123/80 01/10/21 06:48 Pulse Ox 96 01/06/21 02:35 Constitutional WD/WN, vitals as above Eyes PERRL, conjunctivae normal, anicteric sclerae ENMT Ears: no hearing impairment and no external ear abnormality Nose: no external nose abnormality Mouth: no lip abnormality Neck trachea midline, no thyromegaly normal visual inspection Respiratory normal respiratory effort and able to speak in complete sentences; no respiratory distress and no labored breathing Cardiovascular Rate/Rhythm: regular rate and regular rhythm Extremities: no edema Musculoskeletal Head/Neck/Chest: normocephalic and head atraumatic Extremities: extremities normal to inspection Gait: normal gait Skin no rashes, warm and dry Neurologic PERRL, EOMI, accommodation nl, no face palsy, no dysarthria awake Motor/Sensory: normal movement Results & Data ([facility]) Laboratory Results Laboratory Results - last 24 hr 01/09/21 01/09/21 01/09/21 17:31 17:31 17:31 RPR Nonreactive C.trachomatis RNA Hep Bs Antigen Neg Hepatitis C Antibody Neg HIV 1&2 Ab/P24 Ag 4thGn Neg N.gonorrhoeae RNA T.vaginalis (Amp Det) Reference Lab Comment 01/09/21 Unknown RPR C.trachomatis RNA Pending Hep Bs Antigen Hepatitis C Antibody HIV 1&2 Ab/P24 Ag 4thGn N.gonorrhoeae RNA Pending T.vaginalis (Amp Det) Pending Reference Lab Comment Pending Current Inpatient Medications Current Inpatient Medications: Current Inpatient Medications Acetaminophen (Acetaminophen 325 Mg Tab) 650 mg PO Q4H PRN PRN Reason: Headache or Minor Fever Stop: 02/05/21 02:29 Last Admin: 01/09/21 14:55 Dose: 650 mg Documented by: Al Hydrox/Mg Hydrox/Simethicone (Aluminum/Magnesium Susp 30 Ml Udc) 30 ml PO Q4H PRN PRN Reason: GI Upset Stop: 02/05/21 02:29 Bismuth Subsalicylate (Bismuth Subsalicylate Liqd 236 Ml) 15 ml PO PRN PRN PRN Reason: Loose Stool Stop: 02/05/21 02:29 Hydroxyzine HCl (Hydroxyzine Hcl 25 Mg Tab) 50 mg PO HSZ PRN PRN Reason: Insomnia Stop: 02/05/21 02:29 Hydroxyzine HCl (Hydroxyzine Hcl 25 Mg Tab) 25 mg PO Q4H PRN PRN Reason: Anxiety Stop: 02/05/21 02:29 Ibuprofen (Ibuprofen 600 Mg Tab) 600 mg PO Q8H PRN PRN Reason: Pain Stop: 02/08/21 16:49 Last Admin: 01/09/21 17:04 Dose: 600 mg Documented by: Magnesium Hydroxide (Magnesium Hydroxide Susp 30 Ml Udc) 30 ml PO DAILY PRN PRN Reason: Constipation Stop: 02/05/21 02:29 Quetiapine Fumarate (Quetiapine Fumarate 300 Mg Tablet) 300 mg PO HS JESSI Stop: 02/08/21 21:59 Last Admin: 01/09/21 22:04 Dose: 300 mg Documented by: Sodium Chloride (Sodium Chloride 0.65% Na Soln 45 Ml ([place])) 1 - 2 sprays NA PRN PRN PRN Reason: Nasal Dryness/Congestion Stop: 02/05/21 02:29 Mental Health & Subst Abuse Tx Psychiatrist Name of Psychiatrist: Nikkie Kennedy Psychiatrist's Psychiatric Appointment Comment: Will schedule after intake Therapist Name of Therapist: Nikkie Rivera Therapist's Date of Therapist Appointment: 01/23/21 Time of Therapist Appointment: 10:00 a.m. Therapy Appointment Comment: [id number] [facility] Name of Savings Teller: [facility] Phone Number for Savings Teller: [phone] Date of Appointment with Savings Teller: 01/12/21 Time of Appointment with Savings Teller: 1:00 p.m. Case Management Appointment Comment: [email or web address] Discharge Appointments Primary Care Physician Name Of Family Doctor: [facility] Date of Appointment with PCP: 01/15/21 Time of Appointment with PCP: 10:40 a.m. Provider Appointment Comment: [facility] Contact Information Discharge Discharge Address: [address] [facility], [place] [address] Contact Information Comment: .
[2021-01-10] MEDS: QUEtiapine FUMARATE 300 MG TABLET PO SCH (21:38)
[2021-01-11 06:41] VITALS: TEMP 98.2
[2021-01-11] MEDS ORDERED: DESTROY THIS MEDICATION ONE (09:12)
--- NOTE | 2021-01-11 10:39 | Discharge Summary ---
Date of Service January 11, 2021 History of Present Illness Patient came to ED reporting 3 day history of worsening SI but also poor sleep (4-5 hrs a night), racing thoughts, and change in behavior. She regrets her spending and a sexual encounter that was uncharacteristic of her. She is feeling more impulsive and engaged in superficial cutting of her thing and forearms 2 days ago (denies that the cutting itself was a suicide attempt). Focus has been poor and she has been missing classes and assignments (typically 3.6 GPA student). This episode is persistent vs. previous episodes which were just a few days a month. She has been compliant with Cymbalta prescribed by her PCP at [facility]. Today she adds that mood instability has been present for most of the past year, hypomania lasting up to 2 months. Denies any breaks with reality but will do things she doesn't remember--will see evidence of spending on credit cards or have unplanned sexual encounters that she later regrets. She states she didn't tell the doctor before as she was ambivalent about medication for generalized anxiety but "my mom made me go and she's the crazy one." The patient swore repeatedly, talked about how disgusted she is by stupid and crazy people and vowed to not go to any group therapies while she is here. She reported "attacking" friends recently, verballing "going after them" over very minor perceived slights and typically "I"m the sweet one making everyone brownies". She may have some increased goal directed activities with regards to cooking as spent hours prepping for [employer]. She's really not able to elaborate on her suicidal thoughts other than it's unbearable for her to have a mental illness and her boyfriend will never forgive her for sleeping with his friend. She has been on/off her prescribed medication in the past year when insurance lapsed but has been taking consistently for a few months. Physical Exam Psychiatric Orientation: alert and oriented x 3 Apperance: appropriately dressed and appropriately groomed Eye Contact: good eye contact Motor Behavior: no abnormal motor movements Speech: normal rate/rhythm/volume of speech Affect: + labile affect Mood: + depressed mood and + irritable mood Thought Process: linear/logical thought process and + circumstantial thought process Thought Content: reality based without delusions Suicidal Thoughts: denies suicidal thoughts, denies suicidal plan and denies suicidal intent Homicidal Thoughts: denies homicidal thoughts Hallucinations: no auditory hallucinations and no visual hallucinations Cognition: attention grossly intact and language grossly intact Estimated Intelligence: consistent with education level Insight: + limited insight Judgement: + limited judgement Vital Signs (Past 24 Hours) Last Vital Signs Temp 36.8 C 01/11/21 06:40 Pulse 112 H 01/11/21 06:40 Resp 16 01/11/21 06:40 BP 106/61 01/11/21 06:40 Pulse Ox 96 01/06/21 02:35 Constitutional WD/WN, vitals as above Eyes PERRL, conjunctivae normal, anicteric sclerae ENMT Ears: no hearing impairment and no external ear abnormality Nose: no external nose abnormality Mouth: no lip abnormality Neck trachea midline, no thyromegaly normal visual inspection Respiratory normal respiratory effort and able to speak in complete sentences; no respiratory distress and no labored breathing Cardiovascular Rate/Rhythm: regular rate and regular rhythm Extremities: no edema Musculoskeletal Head/Neck/Chest: normocephalic and head atraumatic Extremities: extremities normal to inspection Gait: normal gait Skin no rashes, warm and dry Neurologic PERRL, EOMI, accommodation nl, no face palsy, no dysarthria awake Motor/Sensory: normal movement Principal Diagnosis Bipolar Disorder Psychiatric Data See daily stay summary. In short, safety was maintained, and the patient was cooperative with care. Medication changes included discontinuing Cymbalta and starting Seroquel and they tolerated this well Dose was titrated up to 300mg PO qHS. A family session was held and safety plan was completed prior to discharge. Day of Discharge Assessment Today the patient voices readiness for discharge. They note improvement in mood and deny thoughts to harm self or others. Thoughts remain organized and they are improved from admission. There is no evidence of psychosis. They agree to take medications as prescribed and keep follow-up appointments. They are stable for discharge to outpatient level of care. Transition of Care Transition Of Care Record: was reviewed with the patient Advance Directives Advance Directives Information Provided: Yes Advance Directives: No Mental Health Advance Directive: No Advance Directives on File: No Living Will: No Power of Full Stack Java Developer: No Advance Directives Reason:: Declines as Mental Health Visit. Risk Factors Assessment Do You Have Access To A Gun?: No Protective Factors Assessment Employed: Yes ([employer]) Discharge Data Lab Results 01/05/21 01/05/21 01/05/21 20:15 20:15 20:15 WBC RBC Hgb Hct MCV MCH MCHC RDW Std Deviation RDW Coeff of Claude Plt Count MPV Immature Gran % (Auto) Neut % (Auto) Lymph % (Auto) Ramsey % (Auto) Eos % (Auto) Baso % (Auto) Neut # (Auto) Lymph # (Auto) Ramsey # (Auto) Eos # (Auto) Baso # (Auto) Immature Gran # (Auto) Sodium Potassium Chloride Carbon Dioxide Anion Gap BUN Creatinine Est Cr Clr Drug Dosing Est GFR ( Amer) Est GFR (Non-Af Amer) BUN/Creatinine Ratio Glucose Fasting Glucose Calcium Total Bilirubin AST ALT Alkaline Phosphatase Total Protein Albumin Globulin Albumin/Globulin Ratio Triglycerides Cholesterol LDL Cholesterol, Calc VLDL Cholesterol, Calc HDL Cholesterol Cholesterol/HDL Ratio TSH Urine Color Yellow Urine Appearance Clear Urine pH 5.5 Ur Specific Evergreen 1.024 Urine Protein Trace H Urine Glucose (UA) Negative Urine Ketones Trace H Urine Blood 3+ H Urine Nitrite Negative Urine Bilirubin Negative Urine Urobilinogen Negative Ur Leukocyte Esterase Negative Urine WBC (Auto) 1-5 Urine RBC (Auto) 5-10 H U Hyaline Cast (Auto) 1-5 U Epithel Cells (Auto) 20-30 H Urine Bacteria (Auto) Negative Urine Crystals Calcium Oxalate A Calcium Oxalate Crystal Present A POC Ur Test NEG Salicylates Urine Opiates Screen Neg Ur Methadone, Qual Neg Acetaminophen Urine Barbiturates Neg Ur Phencyclidine (PCP) Neg U Amphetamin/Meth Scrn Neg MDMA (Ecstasy) Screen Neg U Benzodiazepines Scrn Neg Ur Cocaine Metabolite Neg U Marijuana (THC) Screen Neg Ethyl Alcohol mg/dL RPR COVID-19 Eval Order Hep Bs Antigen Hepatitis C Antibody HIV 1&2 Ab/P24 Ag 4thGn SARS-CoV-2, RNA, NAAT 01/05/21 01/05/21 01/05/21 20:20 20:20 20:20 WBC 11.81 H RBC 4.53 Hgb 13.5 Hct 40.9 MCV 90.3 MCH 29.8 MCHC 33.0 RDW Std Deviation 43.7 RDW Coeff of Claude 13.2 Plt Count 517 H MPV 8.8 Immature Gran % (Auto) 0.3 Neut % (Auto) 63.2 Lymph % (Auto) 29.8 Ramsey % (Auto) 5.8 Eos % (Auto) 0.5 Baso % (Auto) 0.4 Neut # (Auto) 7.47 H Lymph # (Auto) 3.52 H Ramsey # (Auto) 0.68 H Eos # (Auto) 0.06 Baso # (Auto) 0.05 Immature Gran # (Auto) 0.03 H Sodium 140 Potassium 3.9 Chloride 105 Carbon Dioxide 29 Anion Gap 5.0 BUN 11 Creatinine 0.81 Est Cr Clr Drug Dosing 140.9 Est GFR ( Amer) 119.5 Est GFR (Non-Af Amer) 103.1 BUN/Creatinine Ratio 13.8 Glucose 95 Fasting Glucose Calcium 9.1 Total Bilirubin 0.2 AST 24 ALT 48 Alkaline Phosphatase 84 Total Protein 8.1 Albumin 3.8 Globulin 4.3 H Albumin/Globulin Ratio 0.9 Triglycerides Cholesterol LDL Cholesterol, Calc VLDL Cholesterol, Calc HDL Cholesterol Cholesterol/HDL Ratio TSH 2.200 Urine Color Urine Appearance Urine pH Ur Specific Evergreen Urine Protein Urine Glucose (UA) Urine Ketones Urine Blood Urine Nitrite Urine Bilirubin Urine Urobilinogen Ur Leukocyte Esterase Urine WBC (Auto) Urine RBC (Auto) U Hyaline Cast (Auto) U Epithel Cells (Auto) Urine Bacteria (Auto) Urine Crystals Calcium Oxalate Crystal POC Ur Test Salicylates < 1.7 L Urine Opiates Screen Ur Methadone, Qual Acetaminophen < 2 L Urine Barbiturates Ur Phencyclidine (PCP) U Amphetamin/Meth Scrn MDMA (Ecstasy) Screen U Benzodiazepines Scrn Ur Cocaine Metabolite U Marijuana (THC) Screen Ethyl Alcohol mg/dL RPR COVID-19 Eval Order Hep Bs Antigen Hepatitis C Antibody HIV 1&2 Ab/P24 Ag 4thGn SARS-CoV-2, RNA, NAAT 01/05/21 01/05/21 01/05/21 20:20 Unknown Unknown WBC RBC Hgb Hct MCV MCH MCHC RDW Std Deviation RDW Coeff of Claude Plt Count MPV Immature Gran % (Auto) Neut % (Auto) Lymph % (Auto) Ramsey % (Auto) Eos % (Auto) Baso % (Auto) Neut # (Auto) Lymph # (Auto) Ramsey # (Auto) Eos # (Auto) Baso # (Auto) Immature Gran # (Auto) Sodium Potassium Chloride Carbon Dioxide Anion Gap BUN Creatinine Est Cr Clr Drug Dosing Est GFR ( Amer) Est GFR (Non-Af Amer) BUN/Creatinine Ratio Glucose Fasting Glucose Calcium Total Bilirubin AST ALT Alkaline Phosphatase Total Protein Albumin Globulin Albumin/Globulin Ratio Triglycerides Cholesterol LDL Cholesterol, Calc VLDL Cholesterol, Calc HDL Cholesterol Cholesterol/HDL Ratio TSH Urine Color Urine Appearance Urine pH Ur Specific Evergreen Urine Protein Urine Glucose (UA) Urine Ketones Urine Blood Urine Nitrite Urine Bilirubin Urine Urobilinogen Ur Leukocyte Esterase Urine WBC (Auto) Urine RBC (Auto) U Hyaline Cast (Auto) U Epithel Cells (Auto) Urine Bacteria (Auto) Urine Crystals Calcium Oxalate Crystal POC Ur Test Salicylates Urine Opiates Screen Ur Methadone, Qual Acetaminophen Urine Barbiturates Ur Phencyclidine (PCP) U Amphetamin/Meth Scrn MDMA (Ecstasy) Screen U Benzodiazepines Scrn Ur Cocaine Metabolite U Marijuana (THC) Screen Ethyl Alcohol mg/dL < 3.0 RPR COVID-19 Eval [facility] Hep Bs Antigen Hepatitis C Antibody HIV 1&2 Ab/P24 Ag 4thGn SARS-CoV-2, RNA, NAAT NEGATIVE 01/07/21 01/09/21 01/09/21 08:05 17:31 17:31 WBC RBC Hgb Hct MCV MCH MCHC RDW Std Deviation RDW Coeff of Claude Plt Count MPV Immature Gran % (Auto) Neut % (Auto) Lymph % (Auto) Ramsey % (Auto) Eos % (Auto) Baso % (Auto) Neut # (Auto) Lymph # (Auto) Ramsey # (Auto) Eos # (Auto) Baso # (Auto) Immature Gran # (Auto) Sodium Potassium Chloride Carbon Dioxide Anion Gap BUN Creatinine Est Cr Clr Drug Dosing Est GFR ( Amer) Est GFR (Non-Af Amer) BUN/Creatinine Ratio Glucose Fasting Glucose 85 Calcium Total Bilirubin AST ALT Alkaline Phosphatase Total Protein Albumin Globulin Albumin/Globulin Ratio Triglycerides 107 Cholesterol 172 LDL Cholesterol, Calc 111 VLDL Cholesterol, Calc 21 HDL Cholesterol 40 Cholesterol/HDL Ratio 4 TSH Urine Color Urine Appearance Urine pH Ur Specific Evergreen Urine Protein Urine Glucose (UA) Urine Ketones Urine Blood Urine Nitrite Urine Bilirubin Urine Urobilinogen Ur Leukocyte Esterase Urine WBC (Auto) Urine RBC (Auto) U Hyaline Cast (Auto) U Epithel Cells (Auto) Urine Bacteria (Auto) Urine Crystals Calcium Oxalate Crystal POC Ur Test Salicylates Urine Opiates Screen Ur Methadone, Qual Acetaminophen Urine Barbiturates Ur Phencyclidine (PCP) U Amphetamin/Meth Scrn MDMA (Ecstasy) Screen U Benzodiazepines Scrn Ur Cocaine Metabolite U Marijuana (THC) Screen Ethyl Alcohol mg/dL RPR COVID-19 Eval Order Hep Bs Antigen Neg Hepatitis C Antibody Neg HIV 1&2 Ab/P24 Ag 4thGn Neg SARS-CoV-2, RNA, NAAT 01/09/21 17:31 WBC RBC Hgb Hct MCV MCH MCHC RDW Std Deviation RDW Coeff of Claude Plt Count MPV Immature Gran % (Auto) Neut % (Auto) Lymph % (Auto) Ramsey % (Auto) Eos % (Auto) Baso % (Auto) Neut # (Auto) Lymph # (Auto) Ramsey # (Auto) Eos # (Auto) Baso # (Auto) Immature Gran # (Auto) Sodium Potassium Chloride Carbon Dioxide Anion Gap BUN Creatinine Est Cr Clr Drug Dosing Est GFR ( Amer) Est GFR (Non-Af Amer) BUN/Creatinine Ratio Glucose Fasting Glucose Calcium Total Bilirubin AST ALT Alkaline Phosphatase Total Protein Albumin Globulin Albumin/Globulin Ratio Triglycerides Cholesterol LDL Cholesterol, Calc VLDL Cholesterol, Calc HDL Cholesterol Cholesterol/HDL Ratio TSH Urine Color Urine Appearance Urine pH Ur Specific Evergreen Urine Protein Urine Glucose (UA) Urine Ketones Urine Blood Urine Nitrite Urine Bilirubin Urine Urobilinogen Ur Leukocyte Esterase Urine WBC (Auto) Urine RBC (Auto) U Hyaline Cast (Auto) U Epithel Cells (Auto) Urine Bacteria (Auto) Urine Crystals Calcium Oxalate Crystal POC Ur Test Salicylates Urine Opiates Screen Ur Methadone, Qual Acetaminophen Urine Barbiturates Ur Phencyclidine (PCP) U Amphetamin/Meth Scrn MDMA (Ecstasy) Screen U Benzodiazepines Scrn Ur Cocaine Metabolite U Marijuana (THC) Screen Ethyl Alcohol mg/dL RPR Nonreactive COVID-19 Eval Order Hep Bs Antigen Hepatitis C Antibody HIV 1&2 Ab/P24 Ag 4thGn SARS-CoV-2, RNA, NAAT Hospital Course (1) Bipolar disorder: 01/10/2021eroquel remain at 300 mg p.o. nightly. Patient making good progress, will start discharge planning 01/09/2021eroquel will be increased to 300 mg p.o. nightly. Patient making incremental progress. 01/08/2021eroquel increased to 200 mg p.o. nightly. 01/07/21: reviewed therapeutic dosing range for Seroquel for acute tarsha. She prefers lowest effective dose rathe than forced titration to 300 mg and would like to continue 100 mg again tonight. 01/06/21: The patient was admitted to the [facility] ([facility] mental health unit) on q15 min checks (behavioral with suicide precautions) for safety. The patient will participate in group, recreational, and milieu therapies and will be offered additional individual and family sessions as clinically appropriate. Patient was offered 50 mg dose of Seroquel overnight for acute anxiety/insomnia driven by her mood condition. Lower dose of Cymbalta today to minimize discontinuation syndrome then d/c. Risks/benefits/alternatives were reviewed re: antipsychotics for mood and/or psychosis. Discussion included but was not limited to metabolic side effects, risks of TD and suicidal thoughts. There were no abnormal motor movements at baseline. Fasting glucose and lipid panel ordered for baseline monitoring. Mental Health & Subst Abuse Tx Psychiatrist Name of Psychiatrist: Nikkie Kennedy Psychiatrist's Psychiatric Appointment Comment: Will schedule after intake Psychiatrist Release of Information: Obtained, Reviewed and Signed Therapist Name of Therapist: Nikkie Rivera Therapist's Date of Therapist Appointment: 01/23/21 Time of Therapist Appointment: 10:00 a.m. Therapy Appointment Comment: [id number] Therapist Release of Information: Obtained, Reviewed and Signed Shuttle Spotter Name of Shuttle Spotter: [facility] - Alice Phone Number for Shuttle Spotter: [phone] Date of Appointment with Shuttle Spotter: 01/12/21 Time of Appointment with Shuttle Spotter: 1:00 p.m. Case Management Appointment Comment: Alice will Zoom with you - [email or web address] Shuttle Spotter Release of Information: Obtained, Reviewed and Signed Post Discharge Appointments Primary Care Physician Name Of Family Doctor: Cristiano Padilla [facility] Date of Appointment with PCP: 01/15/21 Time of Appointment with PCP: 10:40 a.m. Provider Appointment Comment: [facility] Release of Information: Obtained, Reviewed and Signed Contact Information Discharge Discharge Address: [address], [address], [place] [address] Contact Information Comment: . Discharge Plan Discharge Items Patient Disposition: Home - Self-Care Reason For Visit: BIPOLAR DISORDER Discharge Diagnosis: Bipolar Disorder Activity: Resume your previous activity Non-emergency contact: Primary Care Provider, Psychiatrist and Therapist Call non-emergency contact if: you have any medication questions Follow-up/Referrals: [facility] [Primary Care Provider] - Diet: Regular Addtl Attending Provider Instructions: SPECIAL CARE INSTRUCTIONS: 1. Follow through with your scheduled aftercare appointments. If unable to keep an appointment, please call to reschedule. 2. Take your medication only as prescribed. Medication should not be changed or stopped without the approval of your doctor. In the event of worsening symptoms or concerns about side effects, contact your doctor immediately. 3. Utilize new healthy coping skills, anger management skills, and stress management skills learned during your hospitalization. Journal feelings and process them with a support person. Identify stressors or situations that may result in relapse, deterioration or inappropriate behaviors and develop a plan to deal with those issues. 4. If your coping skills are ineffective and you are in crisis, contact your outpatient providers for direction. If unable to reach your providers, please call the [facility] CRISIS LINE AT , go to the [facility] walk-in center at [address] [place] [address], [address], [place], or go to the closest Emergency Room. 5. Avoid alcohol and un-prescribed drugs. 6. You have been provided with the Mental Health Advance Directives Pamphlet for your review. 7. Your condition is stable for discharge to outpatient level of care, but recovery is an ongoing process. Ifthoughts to harm yourself or others return, follow the safety plan developed during your stay. Planning for a safe return home includes securing weapons. Our treatment team recommends weaponsbe removed from the home until your outpatient provider reassesses your progress. In rare cases where the items themselvescannot be removed, guns and ammunitionshould be secured separatelyand keys stored by a reliable personoutside of the home. If you were admitted on an involuntary commitment, the police or other legal authorities may be involved in this process. AFTERCARE APPOINTMENTS: * Please call your insurance company prior to your scheduled appointment to confirm your aftercare providers are covered. Take your insurance information to your appointments. WHO TO CALL AND WHEN: Medical Emergencies: For questions or emergencies related to your hospital stay, please contact the Inpatient Behavioral Health Unit at [phone]. A coat cutter is on-call 11/11 for the Behavioral Health Unit for emergencies At any time you feel your situation is an emergency, you may also call 911 immediately. Pending Studies at Discharge: No Stand-Alone Forms: My [facility] Medications and DC Order Prescriptions: New quetiapine 300 mg Tablet 300 mg PO HS 30 Days Qty: 30 RF: 0 Discontinued duloxetine 20 mg capsule,delayed release(DR/EC) 40 mg PO DAILY RF: 0 Discharge Orders: Discharge Order (Routine); Ordered 01/11/21 Ordered By: Osman Meyers/Other Patient Handouts: ED Bipolar Disorder Admission Data Admit Date/Time: 01/06/21 01:43 Attending Provider: Alexandrea Curtis Admit Provider: Alexandrea Curtis Primary Care Provider: [facility] Coding Level of Care Code 24133 D/C day mgmt > 30 min Diagnoses Bipolar disorder F31.9 Time Spent (min) 40
[2021-01-11 10:57] VITALS: BP 116/77; PULSE 81
[2021-01-11 18:11] LABS: Chlamydia Trach RNA NOT DETECTED (NOT DETECTED); GC (Neis gonorrhoeae) RNA NOT DETECTED (NOT DETECTED); Trichomonas vaginalis RNA NOT DETECTED (NOT DETECTED)
== END 2021-01-11 12:07 | disposition home or self-care (01) | DRG 885 ==
LOC: ED 19:13 → 3S 01-06 01:43